=== PATIENT | female | born 1970 | race Hispanic/Latino ===

== ENCOUNTER 2020-12-19 05:30 | Observation (INO) | payer MEDICAID ==
[2020-12-15 15:30] LABS: BASOPHILS % (AUTO) 0.8 % (0.0-5.0); EOSINOPHILS % (AUTO) 2.1 % (0.0-8.0); HEMATOCRIT 39.9 % (36-48); LYMPHOCYTES % (AUTO) 32.2 % (21.0-51.0); MEAN CORPUSCULAR HEMOGLOBIN 26.6 pg (27.0-33.0); MEAN CORPUSCULAR HGB CONC 31.8 g/dL (32.0-36.0); MEAN CORPUSCULAR VOLUME 83.6 fL (79-99); MONOCYTES % (AUTO) 8.4 % (3.0-13.0); NEUTROPHILS % (AUTO) 56.3 % (40.0-77.0); PLATELET COUNT (AUTO) 261 K/uL (130-400); RED BLOOD CELL COUNT(AUTO) 4.77 MIL/uL (4.00-5.50); RED CELL DISTRIBUTION WIDTH 15.6 % (11.0-15.5); WHITE BLOOD COUNT (AUTO) 6.3 K/uL (4.8-10.8)
[2020-12-15 15:32] LABS: APPEARANCE,URINE CLOUDY (CLEAR); BILIRUBIN,URINE NEGATIVE (NEGATIVE); COLOR,URINE YELLOW (YELLOW); GLUCOSE, URINE (UA) NEGATIVE (NEGATIVE); KETONES,URINE NEGATIVE (NEGATIVE); LEUKOCYTE ESTERASE ,URINE NEGATIVE (NEGATIVE); NITRATE,URINE NEGATIVE (NEGATIVE); OCCULT BLOOD,URINE NEGATIVE (NEGATIVE); PH,URINE 7.5 (5.0-8.0); PROTEIN,URINE NEGATIVE (NEGATIVE); UROBILINOGEN,URINE 0.2 mg/dL (0.2-1.0)
[2020-12-15 15:40] VITALS: BP 158/84
[2020-12-15 15:44] LABS: AMORPHOUS SEDIMENT,UR Moderate /LPF (None Seen); BACTERIA,URINE Rare /HPF (None Seen); RBC,URINE 0-1 /HPF (0-1); SQUAMOUS EPITHELIAL CELL,UR Rare /HPF (0-2); WBC,URINE 0-1 /HPF (0-1)
[~2020-12-19] VITALS: Ht 152.4 cm; Wt 63.0 kg
[2020-12-19] VITALS (24 sets, daily range): BP systolic 92–145; BP diastolic 52–80
[~2020-12-19 05:30] MED LIST: ENAL5TAB17 PO
[2020-12-19] MEDS: LACTATED RINGERS 1000ML 1,000 ML IV SCH ×2 (06:10→07:36)
[2020-12-19] MEDS ORDERED: CEFAZOLIN SODIUM 1 GM VIAL IVP PRN (06:45)
[2020-12-19] MEDS ORDERED: SUCCINYLCHOLINE CHLORIDE 20 MG/ML 10 ML VIAL ONE (06:46)
[2020-12-19] MEDS ORDERED: NEOSTIGMINE 5MG/5ML SYR IV ONE (06:46)
[2020-12-19] MEDS ORDERED: GLYCOPYRROLATE 1 MG/5 ML SYRINGE ONE (06:46)
[2020-12-19] MEDS ORDERED: PROPOFOL 10 MG/ML 20ML VIAL IV ONE (06:46)
[2020-12-19] MEDS ORDERED: LIDOCAINE PF 100MG/5ML (2%) SYRINGE 5ML ONE (06:46)
[2020-12-19] MEDS ORDERED: CEFAZOLIN SODIUM 1 GM VIAL ONE (06:46)
[2020-12-19] MEDS ORDERED: MIDAZOLAM HCL 1 MG/ML 2ML VIAL ONE (06:46)
[2020-12-19] MEDS ORDERED: FENTANYL CITRATE PF 50 MCG/1 ML 2ML VIAL ONE ×3 (06:46→09:10)
[2020-12-19] MEDS ORDERED: ROCURONIUM 10MG/1ML SYR 10 MG/ML ML ONE (06:47)
[2020-12-19] MEDS ORDERED: KETAMINE 50MG/ML SYRINGE 50 MG/ML DISP.SYRIN IV ONE (06:56)
[2020-12-19] MEDS ORDERED: DEXAMETHASONE SOD PHOSPHATE 10MG/ML 1ML VIAL ONE (07:09)
[2020-12-19] MEDS ORDERED: ONDANSETRON 4MG INJ ONE (09:34)
[2020-12-19] MEDS ORDERED: PHENYLEPHRINE HCL 10 MG/ML 1ML VIAL IV ONE (09:40)
[2020-12-19] MEDS ORDERED: MEPERIDINE-PF 25 MG/ML SYG ONE ×2 (10:09→10:23)
[2020-12-19] MEDS ORDERED: IBUPROFEN 600 MG TABLET PO PRN (11:30)
[2020-12-19] MEDS ORDERED: ONDANSETRON 4MG INJ IVP PRN (11:30)
[2020-12-19] MEDS ORDERED: PROMETHAZINE HCL 25 MG/ML 1ML AMPULE IM PRN (11:30)
[2020-12-19] MEDS ORDERED: BISACODYL 10 MG SUPP.RECT RC PRN (11:30)
[2020-12-19] MEDS ORDERED: APAP-CODEINE 300/30MG TAB PO PRN (11:30)
[2020-12-19] MEDS: PROMETHAZINE HCL 25 MG/ML 1ML AMPULE IM PRN ×2 (12:00→20:24)
[2020-12-19] MEDS: MEPERIDINE-PF 75 MG/ML SYG IM PRN ×2 (12:01→20:24)
[2020-12-19] MEDS: DEXTROSE 5 %-0.45 % NACL 1,000 ML IV PRN ×2 (12:02→20:15)
[2020-12-19] MEDS: DOCUSATE SODIUM 100 MG CAP PO PRN (21:24)
[2020-12-19] MEDS: SIMETHICONE 80 MG TAB.CHEW PO PRN (21:24)
[2020-12-20] VITALS (7 sets, daily range): BP systolic 105–129; BP diastolic 58–72
[2020-12-20] MEDS: PROMETHAZINE HCL 25 MG/ML 1ML AMPULE IM PRN (04:31)
[2020-12-20] MEDS: MEPERIDINE-PF 75 MG/ML SYG IM PRN (04:31)
[2020-12-20 05:47] LABS: HEMATOCRIT 31.7 % (36-48); MEAN CORPUSCULAR HEMOGLOBIN 26.5 pg (27.0-33.0); MEAN CORPUSCULAR HGB CONC 31.5 g/dL (32.0-36.0); MEAN CORPUSCULAR VOLUME 83.9 fL (79-99); RED BLOOD CELL COUNT(AUTO) 3.78 MIL/uL (4.00-5.50); RED CELL DISTRIBUTION WIDTH 14.7 % (11.0-15.5); WHITE BLOOD COUNT (AUTO) 12.6 K/uL (4.8-10.8)
[2020-12-20] MEDS: DEXTROSE 5 %-0.45 % NACL 1,000 ML IV PRN (07:57)
[2020-12-20] MEDS: SIMETHICONE 80 MG TAB.CHEW PO PRN ×2 (09:00→21:15)
[2020-12-20] MEDS: DOCUSATE SODIUM 100 MG CAP PO PRN ×2 (09:00→21:15)
[2020-12-20] MEDS: FERROUS SULFATE 325 MG TABLET.DR PO SCH (09:00)
[2020-12-20] MEDS ORDERED: HYDROCODONE/ACETAMINOPHEN 5/325 MG TAB PO PRN (16:45)
[2020-12-20] MEDS ORDERED: APAP-CODEINE 300/30MG TAB PO PRN (16:45)
[2020-12-20] MEDS ORDERED: HYDROCODONE/ACETAMINOPHEN 5/325 MG TAB ONE (16:50)
[2020-12-21] MEDS: IBUPROFEN 800 MG TAB PO PRN ×3 (00:02→15:14)
[2020-12-21 04:05] VITALS: BP 128/68
[2020-12-21 07:19] VITALS: BP_SYST 116; BP_SYST 123; BP_DIAS 60; BP_DIAS 70
[2020-12-21] MEDS ORDERED: NITROFURANTOIN MONOHYD/M-CRYST 100 MG CAPSULE PO SCH (09:00)
[2020-12-21] MEDS: FERROUS SULFATE 325 MG TABLET.DR PO SCH (09:33)
[2020-12-21] MEDS: DOCUSATE SODIUM 100 MG CAP PO PRN (09:33)
[2020-12-21] MEDS: SIMETHICONE 80 MG TAB.CHEW PO PRN (09:33)
[2020-12-21 11:21] VITALS: BP 120/65
[2020-12-21] MEDS ORDERED: ACET1TAB25 PO (14:49)
[2020-12-21] MEDS ORDERED: NITR100C4 PO (14:49)
[2020-12-21] MEDS ORDERED: FERR325T22 PO (14:50)
[2020-12-21 15:06] VITALS: BP 116/66
== END 2020-12-21 16:40 | disposition home or self-care (01) ==
LOC: DAH 05:30 → DAHIP 05:31 → DAH 05:31 → WSH 10:55
PROVIDERS: ADMIT Obstetrics & Gynecology; ATTEND Obstetrics & Gynecology
DX: N81.3 Complete uterovaginal prolapse (principal); Z20.822 Contact with and (suspected) exposure to COVID-19; N39.3 Stress incontinence (female) (male); K46.9 Unspecified abdominal hernia without obstruction or gangrene; N73.6 Female pelvic peritoneal adhesions (postinfective)
CPT/HCPCS: 36415 ×2; 57260; 57288; 58552; 81001; 85025; 85027; 88307; 96360; 96361 ×2; 96372 ×2; A4215 ×2; A4221; A4222; A4223; A4344; A4351; A4600; A4606; A4649 ×3; A4663; A4930 ×2; C1769 ×2; C1771; C9803; G0378 ×59; J0330; J0690; J1100; J2175 ×5; J2250; J2370; J2405; J2550 ×3; J2710; J3010 ×3; J3490 ×4; J7030; J7120 ×2; U0003; J2001; J2704

== ENCOUNTER 2021-02-07 03:47 | Emergency (ER) | payer MEDICAID ==
[~2021-02-07 03:47] MED LIST changes: +ACET1TAB25 PO; +FERR325T22 PO; +NITR100C4 PO
[2021-02-07] MEDS ORDERED: CLINDAMYCIN 600 MG/D5% WATER 50 ML IV ONE (04:42)
[2021-02-07] MEDS ORDERED: KETOROLAC TROMETHAMINE 30MG/ML ONE (04:43)
[2021-02-07 04:45] LABS: BASOPHILS % (AUTO) 0.6 % (0.0-5.0); EOSINOPHILS % (AUTO) 1.8 % (0.0-8.0); LYMPHOCYTES % (AUTO) 17.4 % (21.0-51.0); MEAN CORPUSCULAR HEMOGLOBIN 27.4 pg (27.0-33.0); MEAN CORPUSCULAR HGB CONC 32.5 g/dL (32.0-36.0); MEAN CORPUSCULAR VOLUME 84.4 fL (79-99); MONOCYTES % (AUTO) 6.1 % (3.0-13.0); NEUTROPHILS % (AUTO) 73.8 % (40.0-77.0); PLATELET COUNT (AUTO) 219 K/uL (130-400); RED BLOOD CELL COUNT(AUTO) 4.74 MIL/uL (4.00-5.50); RED CELL DISTRIBUTION WIDTH 14.1 % (11.0-15.5); WHITE BLOOD COUNT (AUTO) 8.8 K/uL (4.8-10.8)
[2021-02-07 04:58] LABS: BILIRUBIN,TOTAL 0.3 mg/dL (0.2-1.0); CREATININE 0.7 mg/dL (0.5-1.5); POTASSIUM 4.3 mmol/L (3.5-5.1); TOTAL PROTEIN, SERUM 8.2 g/dL (6.0-8.3)
[2021-02-07] MEDS ORDERED: IOHEXOL-350 50ML VIAL IV ONE (05:45)
== END 2021-02-07 07:27 | disposition home or self-care (01) ==
LOC: EDH 03:47
DX: L03.211 Cellulitis of face (principal); I10 Essential (primary) hypertension; Z90.710 Acquired absence of both cervix and uterus; Z88.1 Allergy status to other antibiotic agents
CPT/HCPCS: 36415; 70487; 80053; 85025; 96365; 96375; 99285; J1885; J3490; Q9967

== ENCOUNTER 2023-12-10 08:48 | Emergency (ER) | payer BC, MEDICAID ==
[~2023-12-10] VITALS: Ht 149.9 cm; Wt 56.7 kg
[~2023-12-10 08:48] MED LIST changes: +ACET-2079 PO; -ACET1TAB25 PO; +ENAL-87 PO; -ENAL5TAB17 PO
[2023-12-10 09:32] LABS: BASOPHILS # (AUTO) 0.05 K/uL (0.00-0.20); BASOPHILS % (AUTO) 0.7 % (0.0-5.0); EOSINOPHILS % (AUTO) 1.5 % (0.0-8.0); IMMATURE GRANULOCYTE ABSOLUTE 0.06 K/uL (0-1); LYMPHOCYTES # (AUTO) 1.9 K/uL (1.0-4.8); LYMPHOCYTES % (AUTO) 27.4 % (21.0-51.0); MEAN CORPUSCULAR HEMOGLOBIN 29.4 pg (27.0-33.0); MEAN CORPUSCULAR HGB CONC 32.8 g/dL (32.0-36.0); MEAN CORPUSCULAR VOLUME 89.7 fL (79-99); MONOCYTES # (AUTO) 0.4 K/uL (0.1-1.0); MONOCYTES % (AUTO) 6.3 % (3.0-13.0); NEUTROPHILS # (AUTO) 4.3 K/uL (1.8-7.7); NEUTROPHILS % (AUTO) 63.2 % (40.0-77.0); PLATELET COUNT (AUTO) 216 K/uL (130-400); RED BLOOD CELL COUNT(AUTO) 4.35 MIL/uL (4.00-5.50); RED CELL DISTRIBUTION WIDTH 12.7 % (11.0-15.5); WHITE BLOOD COUNT (AUTO) 6.8 K/uL (4.8-10.8)
[2023-12-10 09:33] LABS: APPEARANCE,URINE CLEAR (CLEAR); BILIRUBIN,URINE NEGATIVE (NEGATIVE); COLOR,URINE LIGHT-YELLOW (YELLOW); GLUCOSE, URINE (UA) NEGATIVE (NEGATIVE); KETONES,URINE NEGATIVE (NEGATIVE); LEUKOCYTE ESTERASE ,URINE NEGATIVE Leu/uL (NEGATIVE); NITRATE,URINE NEGATIVE (NEGATIVE); OCCULT BLOOD,URINE SMALL (NEGATIVE); PROTEIN,URINE NEGATIVE (NEGATIVE); UROBILINOGEN,URINE 0.2 mg/dL (0.2-1.0)
[2023-12-10 09:40] LABS: ADD UA MICROSCOPIC NO
[2023-12-10 09:43] LABS: CREATININE 0.7 mg/dL (0.5-1.0); POTASSIUM 3.7 mmol/L (3.5-5.1)
[2023-12-10 09:46] LABS: ALBUMIN 3.8 g/dL (3.5-5.0); BILIRUBIN,TOTAL 0.4 mg/dL (0.2-1.0); TOTAL PROTEIN, SERUM 7.4 g/dL (6.0-8.3)
[2023-12-10] MEDS: 0.9%NACL 1000ML 1,000 ML IV ONE (09:58)
[2023-12-10] MEDS: KETOROLAC 30MG VIAL (30MG/ML) IVP ONE (09:59)
[2023-12-10] MEDS: MORPHINE 2 MG SYG IVP ONE (12:30)
[2023-12-10] MEDS ORDERED: IOHEXOL-350 75 ML VIAL IV ONE (12:50)
[2023-12-10] MEDS ORDERED: IOHEXOL 350 MG/ML 100ML INFUS..BTL IV ONE (13:12)
[2023-12-10] MEDS ORDERED: KETO10 PO (15:01)
[2023-12-10 15:27] VITALS: BP 118/64; PULSE 70; RESP 18; O2SAT 98
== END 2023-12-10 15:41 | disposition home or self-care (01) ==
LOC: EDH 08:48
DX: N23 Unspecified renal colic (principal); N13.30 Unspecified hydronephrosis; I10 Essential (primary) hypertension; Z90.49 Acquired absence of other specified parts of digestive tract
CPT/HCPCS: 99284; 74177; 96374; 96361; 96375; 82150; 84484; 80053; 83690; 85025; 81003; 81025; 36415; J2270; J7030; J1885; Q9967

== ENCOUNTER 2023-12-27 15:17 | Emergency (ER) | payer BC ==
[~2023-12-27] VITALS: Ht 149.9 cm; Wt 56.2 kg
[~2023-12-27 15:17] MED LIST changes: +KETO10 PO
[2023-12-27 15:50] LABS: BASOPHILS # (AUTO) 0.04 K/uL (0.00-0.20); BASOPHILS % (AUTO) 0.2 % (0.0-5.0); HEMATOCRIT 38.8 % (36-48); IMMATURE GRANULOCYTE ABSOLUTE 0.07 K/uL (0-1); LYMPHOCYTES # (AUTO) 0.9 K/uL (1.0-4.8); LYMPHOCYTES % (AUTO) 5.7 % (21.0-51.0); MEAN CORPUSCULAR HEMOGLOBIN 29.7 pg (27.0-33.0); MEAN CORPUSCULAR HGB CONC 33.2 g/dL (32.0-36.0); MEAN CORPUSCULAR VOLUME 89.4 fL (79-99); MONOCYTES % (AUTO) 6.3 % (3.0-13.0); NEUTROPHILS % (AUTO) 87.4 % (40.0-77.0); PLATELET COUNT (AUTO) 240 K/uL (130-400); RED BLOOD CELL COUNT(AUTO) 4.34 MIL/uL (4.00-5.50); RED CELL DISTRIBUTION WIDTH 13.5 % (11.0-15.5); WHITE BLOOD COUNT (AUTO) 16.1 K/uL (4.8-10.8)
[2023-12-27] MEDS: ONDANSETRON 4MG INJ IV ONE (16:00)
[2023-12-27] MEDS: KETOROLAC 30MG VIAL (30MG/ML) IVP ONE (16:01)
[2023-12-27 16:06] LABS: ALBUMIN 3.6 g/dL (3.5-5.0); CREATININE 0.9 mg/dL (0.5-1.0); POTASSIUM 3.4 mmol/L (3.5-5.1); TOTAL PROTEIN, SERUM 7.9 g/dL (6.0-8.3)
[2023-12-27 16:18] LABS: APPEARANCE,URINE CLEAR (CLEAR); BILIRUBIN,URINE NEGATIVE (NEGATIVE); COLOR,URINE YELLOW (YELLOW); GLUCOSE, URINE (UA) NEGATIVE (NEGATIVE); KETONES,URINE 5 mg/dL (NEGATIVE); LEUKOCYTE ESTERASE ,URINE SMALL Leu/uL (NEGATIVE); NITRATE,URINE POSITIVE (NEGATIVE); OCCULT BLOOD,URINE SMALL (NEGATIVE); PROTEIN,URINE NEGATIVE (NEGATIVE)
[2023-12-27 16:21] LABS: ADD UA MICROSCOPIC YES
[2023-12-27 16:41] LABS: BACTERIA,URINE Many /HPF (None Seen); RBC,URINE None Seen /HPF (0-1); WBC,URINE 0-1 /HPF (0-1)
[2023-12-27] MEDS: CEFTRIAXONE 1G VIAL IVPB ONE (16:45)
[2023-12-27] MEDS ORDERED: HYDR-4060 PO (16:51)
[2023-12-27] MEDS ORDERED: AMOX1TAB16 PO (16:51)
[2023-12-27 17:17] VITALS: BP 118/80; PULSE 76; RESP 18; O2SAT 99
== END 2023-12-27 17:24 | disposition home or self-care (01) ==
LOC: EDH 15:17
DX: N12 Tubulo-interstitial nephritis, not specified as acute or chronic (principal); I10 Essential (primary) hypertension; Z79.899 Other long term (current) drug therapy; Z90.710 Acquired absence of both cervix and uterus
CPT/HCPCS: 99284; 96365; 96375; 80053; 83690; 85025; 87077; 87088; 87186; 83605; 81001; 36415; J0696; J2405; J1885